=== PATIENT | female | born 1955 | race Caucasian/White ===

== ENCOUNTER → 2016-11-26 | Outpatient (REF) ==
[~2016-11-26] MED LIST: COUM2.5T11 PO; EFFE37.527 PO; GLYX1TAB3 PO; INSUDET SC; INSUHUMDS SC; LISI10TA4 PO; MILKSUS PO; PEG1POW PO; PERC5TAB6 PO; SENN1TAB2 PO; VITA-130 PO
[2016-11-26 10:37] LABS: MEAN CORPUSCULAR HEMOGLOBIN 25.9 pg (27.0-33.0); MEAN CORPUSCULAR HGB CONC 29.9 g/dl (32.0-36.5); MEAN CORPUSCULAR VOLUME 86.5 fl (80.0-96.0); RED CELL DISTRIBUTION WIDTH 16.8 % (11.5-14.5); WHITE BLOOD COUNT 8.4 K/mm3 (4.0-10.0)
[2016-11-26 10:40] LABS: INR 2.58
[2016-11-26 11:15] LABS: CALCIUM LEVEL 8.5 MG/DL (8.8-10.2); CREATININE FOR GFR 1.23 MG/DL (0.55-1.02); GLOMERULAR FILTRATION RATE 47.4 (>45)
--- NOTE | 2016-11-26 23:00 | IPNSKH ---
DATE: 11/26/2016 Resident of [facility] on the second floor in room 425, bed 2. Visited on today's date of 11/26/2016. The visit today primarily was just to discuss pain control as I have been contacted that she is not trying one Percocet, but is taking two Percocet each time and is not trying Tylenol in between. She is an unfortunate 61-year-old that had a mechanical fall and had a comminuted intertrochanteric fracture of the right hip, nondisplaced, right femoral fracture, proximal end, underwent an open reduction internal fixation of the right hip on November 17. She also has a fracture of the right humerus. On examination, she is found sleeping in bed at 04:45 in the afternoon. When she awakens, she denies any pain currently. However, the pain can be 9 to 10 when she is moving. She has taken Percocet two every 8 hours. She was unaware that Percocet is addicting and states she will not take that. However, I recommend that she taper back instead of just discontinuing suddenly. I have also recommended that perhaps she needs to take the Percocet before her physical therapy so she can progress in physical therapy. She is alert and oriented. Her speech is clear. Her EOMs are grossly intact. Sclerae is anicteric. CHART REVIEW: Her blood sugars have been 122-300. Of note, on admission to [facility] her glucose was 933 on November 16 and her A1c was 14.3. She also had an echocardiogram on admission to [facility], which showed mild aortic stenosis, borderline left ventricular hypertrophy (LVH), with grade 2 diastolic dysfunction and ejection fraction of 65-70%. ASSESSMENT/PLAN: 1. Pain control for pain in her right upper arm and right hip. Discussed treatment options and tapering of the Percocet as well as utilizing some of the plain Tylenol as needed (p.r.n.), which she states she is agreeable to. 2. Diabetes with hyperglycemia and neuropathy. She continues on Levemir 16 units twice daily as well as insulin coverage premeal and bedtime. 3. Chronic kidney disease, stage III. Will continue to monitor her medical panels.
== END ==
LOC: SKLAB4 10:22
PROVIDERS: ATTEND Internal Medicine
DX: S72.091A Other fracture of head and neck of right femur, initial encounter for closed fracture (principal); S72.001A Fracture of unspecified part of neck of right femur, initial encounter for closed fracture; S42.301A Unspecified fracture of shaft of humerus, right arm, initial encounter for closed fracture; X58.XXXA Exposure to other specified factors, initial encounter; Y92.9 Unspecified place or not applicable; Y93.9 Activity, unspecified; Y99.9 Unspecified external cause status; I10 Essential (primary) hypertension

== ENCOUNTER → 2016-11-29 | Outpatient (REF) ==
[2016-11-29 09:08] LABS: INR 2.1
== END ==
LOC: SKLAB4 12:19
PROVIDERS: ATTEND Internal Medicine
DX: Z79.01 Long term (current) use of anticoagulants (principal)

== ENCOUNTER → 2016-12-03 | Outpatient (REF) | payer BC, OTHER ==
[2016-12-03 09:06] LABS: INR 1.81
== END ==
LOC: SKLAB4 09:55
PROVIDERS: ATTEND Internal Medicine
DX: S72.001A Fracture of unspecified part of neck of right femur, initial encounter for closed fracture (principal); X58.XXXA Exposure to other specified factors, initial encounter; Y92.9 Unspecified place or not applicable; Y93.9 Activity, unspecified; Y99.9 Unspecified external cause status

== ENCOUNTER → 2016-12-06 | Outpatient (REF) ==
[2016-12-06 08:40] LABS: INR 1.57
== END ==
LOC: SKLAB4 09:25
PROVIDERS: ATTEND Internal Medicine
DX: Z79.01 Long term (current) use of anticoagulants (principal)

== ENCOUNTER → 2016-12-10 | Outpatient (REF) ==
[2016-12-10 09:33] LABS: INR 1.41
== END ==
LOC: SKLAB4 09:27
PROVIDERS: ATTEND Internal Medicine
DX: Z79.01 Long term (current) use of anticoagulants (principal)

== ENCOUNTER → 2016-12-13 | Outpatient (REF) ==
[2016-12-13 10:24] LABS: INR 1.95
== END ==
LOC: SKLAB4 10:46
PROVIDERS: ATTEND Internal Medicine
DX: Z51.81 Encounter for therapeutic drug level monitoring (principal); Z79.01 Long term (current) use of anticoagulants

== ENCOUNTER → 2016-12-17 | Outpatient (REF) ==
[2016-12-17 09:52] LABS: INR 2.32
== END ==
LOC: SKLAB4 10:58
PROVIDERS: ATTEND Internal Medicine
DX: Z51.81 Encounter for therapeutic drug level monitoring (principal); Z79.01 Long term (current) use of anticoagulants

== ENCOUNTER → 2016-12-20 | Outpatient (REF) | payer BC, OTHER | LOC: SKLAB4 21:09 | PROVIDERS: ATTEND Internal Medicine | DX: Z86.14 Personal history of Methicillin resistant Staphylococcus aureus infection (principal) ==

== ENCOUNTER → 2016-12-20 | Outpatient (REF) ==
[2016-12-20 09:22] LABS: INR 2.21
== END ==
LOC: SKLAB4 10:51
PROVIDERS: ATTEND Internal Medicine
DX: Z51.81 Encounter for therapeutic drug level monitoring (principal); Z79.01 Long term (current) use of anticoagulants

== ENCOUNTER → 2016-12-21 | Outpatient (REF) | payer BC, OTHER | LOC: SKLAB4 17:24 | PROVIDERS: ATTEND Internal Medicine | DX: Z86.14 Personal history of Methicillin resistant Staphylococcus aureus infection (principal) ==

== ENCOUNTER → 2016-12-24 | Outpatient (REF) ==
[2016-12-24 08:29] LABS: INR 2.02
== END ==
LOC: SKLAB4 11:30
PROVIDERS: ATTEND Internal Medicine
DX: Z79.01 Long term (current) use of anticoagulants (principal)

== ENCOUNTER → 2016-12-27 | Outpatient (REF) ==
[2016-12-28 07:53] LABS: INR 1.97
== END ==
LOC: SKLAB4 10:57
PROVIDERS: ATTEND Internal Medicine
DX: Z51.81 Encounter for therapeutic drug level monitoring (principal); Z79.01 Long term (current) use of anticoagulants

== ENCOUNTER → 2016-12-28 | Outpatient (REF) | payer BC, OTHER | LOC: SKLAB4 01:55 | PROVIDERS: ATTEND Internal Medicine | DX: Z86.14 Personal history of Methicillin resistant Staphylococcus aureus infection (principal) ==

== ENCOUNTER → 2016-12-31 | Outpatient (REF) ==
[2016-12-31 08:19] LABS: INR 1.42
== END ==
LOC: SKLAB4 11:04
PROVIDERS: ATTEND Internal Medicine
DX: Z51.81 Encounter for therapeutic drug level monitoring (principal); Z79.01 Long term (current) use of anticoagulants

== ENCOUNTER → 2017-01-03 | Outpatient (REF) ==
[2017-01-03 09:42] LABS: INR 1.87
== END ==
LOC: SKLAB4 09:52
PROVIDERS: ATTEND Internal Medicine
DX: Z51.81 Encounter for therapeutic drug level monitoring (principal); Z79.01 Long term (current) use of anticoagulants

== ENCOUNTER → 2017-01-04 | Outpatient (CLI) | payer BC, OTHER ==
--- NOTE | 2017-01-04 11:44 | REP ---
DUPLEX EXTREMITY VENOUS ULTRASOUND: Right lower extremity. HISTORY: 6 weeks post right hip replacement. Question DVT. Edema. FINDINGS: The deep veins are anechoic and fully compressible from the groin to the popliteal fossa in the right lower extremity. Color flow imaging is homogeneous. Spectral Doppler interrogation demonstrates intact respiratory variation in flow and normal manual augmentation of flow. There is no evidence of deep vein thrombosis. There is a 4.8 x 3.0 x 1.0 cm Campoverde's cyst in the right posterior popliteal soft tissues. IMPRESSION: Negative right lower extremity duplex venous ultrasound. No evidence of deep vein thrombosis. 4.8 cm Campoverde's cyst. Signed by Victoriano Herrera MD 01/04/2017 02:06 P
== END ==
LOC: M RAD 10:46
PROVIDERS: ATTEND Nurse Practitioner Adult Health
DX: M71.21 Synovial cyst of popliteal space [Baker], right knee (principal)

== ENCOUNTER → 2017-01-08 | Outpatient (REF) ==
[2017-01-08 07:54] LABS: INR 1.76
== END ==
LOC: SKLAB4 09:50
PROVIDERS: ATTEND Internal Medicine
DX: Z51.81 Encounter for therapeutic drug level monitoring (principal); Z79.01 Long term (current) use of anticoagulants

== ENCOUNTER → 2017-01-09 | Outpatient (CLI) | payer BC, OTHER ==
--- NOTE | 2017-01-09 22:05 | REP ---
Clinical: Lower extremity edema . Technique: Munoz scale and color Doppler evaluation using linear high frequency transducer. Findings: Ultrasound examination of the right lower extremity deep venous structures from the common femoral vein to the popliteal vein demonstrates normal compressibility flow and wave patterns in response to respiration and augmentation. There is no evidence for deep venous thrombosis. Impression: No evidence for deep venous thrombosis. Signed by Michael Coburn MD 01/09/2017 09:56 P
== END ==
LOC: M RAD 08:10
PROVIDERS: ATTEND Nurse Practitioner Adult Health
DX: R60.0 Localized edema (principal)

== ENCOUNTER → 2017-01-10 | Outpatient (REF) ==
[2017-01-10 08:46] LABS: INR 1.27
== END ==
LOC: SKLAB4 11:45
PROVIDERS: ATTEND Internal Medicine
DX: Z51.81 Encounter for therapeutic drug level monitoring (principal); Z79.01 Long term (current) use of anticoagulants

== ENCOUNTER 2017-02-06 11:06 | Outpatient (RCR) | payer BC, OTHER ==
[~2017-02-06 11:06] MED LIST changes: -COUM2.5T11 PO; +COUM2.5T17 PO; +PERC5TAB12 PO; -PERC5TAB6 PO; -VITA-130 PO; +VITA500T PO
== END 2017-02-08 | disposition home or self-care (01) ==
LOC: M PT 11:06
PROVIDERS: ATTEND Orthopaedic Surgery
DX: Z51.89 Encounter for other specified aftercare (principal); S72.141A Displaced intertrochanteric fracture of right femur, initial encounter for closed fracture; S42.201A Unspecified fracture of upper end of right humerus, initial encounter for closed fracture; X58.XXXA Exposure to other specified factors, initial encounter; Y92.9 Unspecified place or not applicable; Y93.9 Activity, unspecified; Y99.9 Unspecified external cause status

== ENCOUNTER → 2017-03-11 | Outpatient (RCR) | payer BC, OTHER | LOC: M OT 02-28 12:25 → M PT 03-01 11:15 → M OT 03-06 07:30 → M PT 08:29 | PROVIDERS: ATTEND Orthopaedic Surgery | DX: Z51.89 Encounter for other specified aftercare (principal); S42.201D Unspecified fracture of upper end of right humerus, subsequent encounter for fracture with routine healing; X58.XXXD Exposure to other specified factors, subsequent encounter; Y92.9 Unspecified place or not applicable; Y93.9 Activity, unspecified; Y99.9 Unspecified external cause status ==

== ENCOUNTER 2017-03-27 08:30 | Outpatient (RCR) | payer BC, OTHER | END 2017-04-11 | disposition home or self-care (01) | LOC: M PT 08:30 | PROVIDERS: ATTEND Orthopaedic Surgery | DX: Z51.89 Encounter for other specified aftercare (principal); S72.141D Displaced intertrochanteric fracture of right femur, subsequent encounter for closed fracture with routine healing; X58.XXXD Exposure to other specified factors, subsequent encounter; Y92.9 Unspecified place or not applicable; Y93.9 Activity, unspecified; Y99.9 Unspecified external cause status | CPT/HCPCS: 97110; 97140; G0283 ==

== ENCOUNTER → 2017-04-09 | Outpatient (CLI) | payer BC ==
--- NOTE | 2017-04-10 10:12 | DEXA ---
AP SPINE L1 - L4 1.472 2.2 3.5 LT FEMUR TOTAL 0.866 -1.1 -0.1 RT FEMUR TOTAL Right hip partial replacement. TOTAL BODY TOTAL OTHER DUAL FEMUR FRAX* ASSESSMENT Risk factors: Not performed. 10 year probability of fracture Major osteoporotic fracture % Hip fracture % COMMENTS: Normal bone densitometry of the spine. There is low bone density of the left hip. The density of the spine has decreased 14.9% since 01/22/2008. The density of the left hip has decreased 40.9% since 01/22/2008. Partial hip replacement. FOLLOW-UP: Recommendation for the next bone density exam: 2 years. DEBBIED
== END ==
LOC: M WHC 08:27
PROVIDERS: ATTEND Internal Medicine Endocrinology, Diabetes & Metabolism
DX: S72.141D Displaced intertrochanteric fracture of right femur, subsequent encounter for closed fracture with routine healing (principal); X58.XXXD Exposure to other specified factors, subsequent encounter; Y92.9 Unspecified place or not applicable; Y93.9 Activity, unspecified; Y99.9 Unspecified external cause status; Z96.641 Presence of right artificial hip joint; M85.88 Other specified disorders of bone density and structure, other site

== ENCOUNTER → 2017-04-11 | Outpatient (REF) | payer BC, OTHER ==
[2017-04-11 12:49] LABS: CREATININE FOR GFR 1.27 MG/DL (0.55-1.02); GLOMERULAR FILTRATION RATE 45.5 (>45); POTASSIUM SERUM 4.6 MEQ/L (3.5-5.1)
== END ==
LOC: M LABDRAW1 08:22
PROVIDERS: ATTEND Internal Medicine Endocrinology, Diabetes & Metabolism
DX: E11.65 Type 2 diabetes mellitus with hyperglycemia (principal)

== ENCOUNTER → 2017-04-11 | Outpatient (REF) | payer BC, OTHER | LOC: M LABDRAW1 08:22 | PROVIDERS: ATTEND Family Medicine | DX: E11.9 Type 2 diabetes mellitus without complications (principal) ==

== ENCOUNTER → 2017-04-24 | Outpatient (REF) | payer MEDICARE | LOC: M SFHCADAM 17:25 | PROVIDERS: ATTEND Family Medicine | DX: N18.9 Chronic kidney disease, unspecified (principal) ==

== ENCOUNTER → 2017-05-07 | Outpatient (CLI) | payer BC, OTHER ==
--- NOTE | 2017-05-08 06:52 | REP ---
Clinical: Chronic medical renal disease. Technique: Real time chapin scale ultrasound examination using curved array transducer. Findings: The bilateral kidneys are normal in contour, size, echogenicity and reniform shape with linear parenchymal echogenicity suggesting renovascular disease. No evidence for hydronephrosis, cystic or renal mass lesion. No perinephric fluid collections are identified. Bladder is collapsed. Right kidney measures 9.1 x 4.9 x 5.7 cm. Left kidney measures 9.9 x 4.8 x 5.8 cm. Impression: 1. Findings suggesting renovascular calcifications. 2. No hydronephrosis or significant renal abnormality by ultrasound. Signed by Michael Coburn MD 05/08/2017 06:44 A
== END ==
LOC: M RAD 16:32
PROVIDERS: ATTEND Family Medicine
DX: N18.9 Chronic kidney disease, unspecified (principal)

== ENCOUNTER → 2017-05-30 | Outpatient (REF) | payer BC, MEDICARE, OTHER | LOC: M SFHCADAM 09:15 | PROVIDERS: ATTEND Family Medicine | DX: N18.3 Chronic kidney disease, stage 3 (moderate) (principal) ==

== ENCOUNTER → 2017-11-11 | Outpatient (REF) | payer OTHER, MEDICARE, BC ==
[2017-11-11 11:30] LABS: BASO % 0.4 % (0.0-1.0); EOS # 0.1 10^3/uL (0.0-0.50); EOS % 1.6 % (0.0-3.0); HEMATOCRIT 33.6 % (36.0-47.0); HEMOGLOBIN 10.3 g/dl (12.0-15.5); IMMATURE GRANULOCYTE % 0.1 % (0-3.0); LYMPH # 1.7 10^3/uL (1.5-4.5); LYMPH % 21.3 % (24.0-44.0); MEAN CORPUSCULAR HEMOGLOBIN 26.6 pg (27.0-33.0); MEAN CORPUSCULAR HGB CONC 30.7 g/dl (32.0-36.5); MEAN CORPUSCULAR VOLUME 86.8 fl (80.0-96.0); MONO # 0.5 10^3/uL (0.0-0.8); MONO % 6.5 % (0.0-5.0); NEUTROPHILS # 5.6 10^3/uL (1.8-7.7); NEUTROPHILS % 70.1 % (36.0-66.0); PLATELET COUNT, AUTOMATED 380 10^3/uL (150-450); RED BLOOD COUNT 3.87 10^6/uL (4.00-5.40); RED CELL DISTRIBUTION WIDTH 13.8 % (11.5-14.5)
[2017-11-11 12:07] LABS: ANION GAP 9 MEQ/L (8-16); BLOOD UREA NITROGEN 24 MG/DL (7-18); C REACTIVE PROTEIN QUANTITATIV < 0.30 MG/DL (0.00-0.30); CALCIUM LEVEL 8.6 MG/DL (8.8-10.2); CARBON DIOXIDE LEVEL 21 MEQ/L (21-32); CHLORIDE LEVEL 114 MEQ/L (98-107); CREATININE FOR GFR 1.29 MG/DL (0.55-1.30); GLOMERULAR FILTRATION RATE 44.7 (>45); GLUCOSE, FASTING 57 MG/DL (70-100); POTASSIUM SERUM 4.7 MEQ/L (3.5-5.1); SODIUM LEVEL 144 MEQ/L (136-145)
== END ==
LOC: M LABDRAW1 09:51
DX: M25.551 Pain in right hip (principal)
CPT/HCPCS: 80048

== ENCOUNTER → 2017-12-20 | Outpatient (CLI) | payer BC, OTHER ==
[2017-12-20 12:23] LABS: HEMOGLOBIN 10.2 g/dl (12.0-15.5); MEAN CORPUSCULAR HEMOGLOBIN 26.7 pg (27.0-33.0); MEAN CORPUSCULAR HGB CONC 30.9 g/dl (32.0-36.5); MEAN CORPUSCULAR VOLUME 86.4 fl (80.0-96.0); PLATELET COUNT, AUTOMATED 331 10^3/uL (150-450); RED BLOOD COUNT 3.82 10^6/uL (4.00-5.40); RED CELL DISTRIBUTION WIDTH 14.5 % (11.5-14.5); WHITE BLOOD COUNT 6.3 10^3/uL (4.0-10.0)
[2017-12-20 12:33] LABS: INR 0.98; PROTHROMBIN TIME 13.1 SECONDS (12.4-14.5)
[2017-12-20 13:09] LABS: ALBUMIN 3.5 GM/DL (3.2-5.2); ALBUMIN/GLOBULIN RATIO 0.95 (1.00-1.93); ALKALINE PHOSPHATASE 143 U/L (45-117); ALT/SGPT 46 U/L (12-78); ANION GAP 6 MEQ/L (8-16); AST/SGOT 34 U/L (7-37); BILIRUBIN,TOTAL 0.3 MG/DL (0.2-1.0); BLOOD UREA NITROGEN 25 MG/DL (7-18); CALCIUM LEVEL 8.6 MG/DL (8.8-10.2); CARBON DIOXIDE LEVEL 25 MEQ/L (21-32); CHLORIDE LEVEL 109 MEQ/L (98-107); CREATININE FOR GFR 1.16 MG/DL (0.55-1.30); GLOMERULAR FILTRATION RATE 50.6 (>45); GLUCOSE, FASTING 125 MG/DL (70-100); POTASSIUM SERUM 4.7 MEQ/L (3.5-5.1); SODIUM LEVEL 140 MEQ/L (136-145); TOTAL PROTEIN 7.2 GM/DL (6.4-8.2)
== END ==
LOC: M LAB 11:36
DX: E78.00 Pure hypercholesterolemia, unspecified (principal); I10 Essential (primary) hypertension; E11.9 Type 2 diabetes mellitus without complications
CPT/HCPCS: 71046

== ENCOUNTER → 2017-12-23 | Outpatient (REF) | payer BC, OTHER | LOC: M SFHCADAM 18:37 | DX: Z01.818 Encounter for other preprocedural examination (principal) | CPT/HCPCS: 87081 ==

== ENCOUNTER → 2018-03-04 | Outpatient (REF) | payer OTHER ==
[2018-03-04 16:21] LABS: ESTIMATED AVERAGE GLUCOSE 137 MG/DL (60-110); HEMOGLOBIN A1c 6.4 %
== END ==
LOC: M LABDRAW1 15:51
DX: E11.65 Type 2 diabetes mellitus with hyperglycemia (principal)

== ENCOUNTER → 2018-06-04 | Outpatient (REF) | payer OTHER ==
[2018-06-04 12:46] LABS: ANION GAP 6 MEQ/L (8-16); BLOOD UREA NITROGEN 22 MG/DL (7-18); CALCIUM LEVEL 8.8 MG/DL (8.8-10.2); CARBON DIOXIDE LEVEL 24 MEQ/L (21-32); CHLORIDE LEVEL 111 MEQ/L (98-107); CREATININE FOR GFR 1.27 MG/DL (0.55-1.30); GLOMERULAR FILTRATION RATE 45.4 (>45); GLUCOSE, FASTING 117 MG/DL (70-100); POTASSIUM SERUM 5.2 MEQ/L (3.5-5.1); SODIUM LEVEL 141 MEQ/L (136-145)
[2018-06-04 13:12] LABS: ESTIMATED AVERAGE GLUCOSE 151 MG/DL (60-110); HEMOGLOBIN A1c 6.9 %
== END ==
LOC: M LABDRAW1 11:48
DX: E11.65 Type 2 diabetes mellitus with hyperglycemia (principal)

== ENCOUNTER → 2018-06-04 | Outpatient (REF) | payer OTHER ==
[2018-06-04 12:57] LABS: MALB URINE SIEMENS 50.8 MG/L
[2018-06-04 12:58] LABS: MAU/CREAT RATIO 33.2 MCG/MG (0.0-30.0)
== END ==
LOC: M LABDRAW1 11:47
DX: E11.22 Type 2 diabetes mellitus with diabetic chronic kidney disease (principal)

== ENCOUNTER → 2018-09-26 | Outpatient (REF) | payer OTHER ==
[~2018-09-26] MED LIST changes: +BYDU1INJ SC; +EFFE37.5 PO; -EFFE37.527 PO; +MILK120011 PO; -MILKSUS PO; +TRES1INJ2 SC; +TYLE1TAB5 PO; +TYLE500T78 PO
[2018-09-26 13:19] LABS: HEMOGLOBIN A1c 7.7 %
== END ==
LOC: M LABDRAW1 10:02
PROVIDERS: ATTEND Internal Medicine Endocrinology, Diabetes & Metabolism
DX: E11.65 Type 2 diabetes mellitus with hyperglycemia (principal)

== ENCOUNTER 2018-11-12 07:44 | Day surgery (SDC) | payer BC, OTHER ==
[~2018-11-12] VITALS: Ht 167.6 cm; Wt 97.1 kg
[2018-11-12] MEDS: NS 1,000 ML IV ONE (06:00)
[~2018-11-12 07:44] MED LIST changes: +LIDOCAINE 2% INJ 100 MG/5 ML SDV (FOR ANES.) As Ordered ONE; +PROPOFOL 200 MG/20 ML VIAL As Ordered ONE; -SENN1TAB2 PO; +SENN1TAB40 PO
--- NOTE | 2018-11-12 09:13 | ROOR ---
Patient Name: Mimi Bolaños Procedure Date: 11/12/2018 8:48 AM Date of : 1955 Age: 63 Room: [facility] Gender: Female Note Status: Finalized Procedure: Total Colonoscopy to Cecum Indications: High risk colon cancer surveillance: Personal history of colonic polyps, Last colonoscopy: 2012 Providers: Jer García MD Referring MD: Masha BENTLEY DO Requesting Provider: Medicines: Monitored Anesthesia Care Complications: No immediate complications. Procedure: Pre-Anesthesia Assessment: - The heart rate, respiratory rate, oxygen saturations, blood pressure, adequacy of pulmonary ventilation, and response to care were monitored throughout the procedure. The Colonoscope was introduced through the anus and advanced to the cecum, identified by appendiceal orifice and ileocecal valve. The colonoscopy was performed without difficulty. The patient tolerated the procedure well. The quality of the bowel preparation was excellent. Findings: The perianal and digital rectal examinations were normal. Non-bleeding internal hemorrhoids were found during retroflexion. The hemorrhoids were small and Grade I (internal hemorrhoids that do not prolapse). Scattered small-mouthed diverticula were found in the recto-sigmoid colon, sigmoid colon and descending colon. The exam was otherwise without abnormality on direct and retroflexion views. Impression: - Non-bleeding internal hemorrhoids. - Diverticulosis in the recto-sigmoid colon, in the sigmoid colon and in the descending colon. - The examination was otherwise normal on direct and retroflexion views. - No specimens collected. - The exam was otherwise normal to the cecum. Recommendation: - Patient has a contact number available for emergencies. The signs and symptoms of potential delayed complications were discussed with the patient. Return to normal activities tomorrow. Written discharge instructions were provided to the patient. - High fiber diet. - Discharge patient to home. - Continue present medications. - Repeat colonoscopy in 5 years for surveillance. - Return to referring physician. - The findings and recommendations were discussed with the patient's family. Jer García MD Jer García MD 11/12/2018 9:12:31 AM Electronically signed by Jer García MD Number of Addenda: 0 Note Initiated On: 11/12/2018 8:48 AM Estimated Blood Loss: Estimated blood loss: none.
[2018-11-12 09:30] VITALS: BP 163/75
== END 2018-11-12 09:39 | disposition home or self-care (01) ==
LOC: M OPP 07:44
PROVIDERS: ATTEND Internal Medicine Gastroenterology
DX: K64.0 First degree hemorrhoids (principal); K57.30 Diverticulosis of large intestine without perforation or abscess without bleeding; Z86.010 Personal history of colon polyps

== ENCOUNTER → 2018-12-09 | Outpatient (CLI) | payer BC ==
[~2018-12-09] MED LIST changes: -LIDOCAINE 2% INJ 100 MG/5 ML SDV (FOR ANES.) As Ordered ONE; -PROPOFOL 200 MG/20 ML VIAL As Ordered ONE
--- NOTE | 2018-12-09 13:07 | REPMRS ---
Patient History The patient states she had a clinical breast exam in 10/2018. Family history of breast cancer at age 50 or over in maternal grandmother, prostate cancer at age 55 in brother, prostate cancer in brother. Benign excisional biopsy of the left breast. Took estrogen for 2 years 1 month. 3D TOMOSYNTHESIS WAS PERFORMED. Digital Woman Screen Mammo: December 09, 2018 - Exam #: [id number] Bilateral CC and MLO view(s) were taken. Technologist: Ebonie Gonzalez, Technologist Prior study comparison: July 04, 2016, digital woman screen mammo performed at [facility]. June 24, 2015, digital woman screen mammo performed at [facility]. FINDINGS: There are scattered fibroglandular densities. There has been no change in the appearance of the mammogram from the prior studies. There is a mild amount of residual fibroglandular tissue which is fairly symmetric. There is no interval development of dominant mass, architectural distortion, or clustered microcalcification suggestive of malignancy. Assessment: BI-RADS/ACR category 1 mammogram. Negative Mammogram. Recommendation Routine screening mammogram in 1 year (for women over age 40). This mammogram was interpreted with the aid of an FDA-approved computer-aided dectection system. Electronically Signed By: Kashmir Munoz MD 12/09/18 [id number]
== END ==
LOC: M WHC 10:08
PROVIDERS: ATTEND Family Medicine
DX: Z12.31 Encounter for screening mammogram for malignant neoplasm of breast (principal); Z92.23 Personal history of estrogen therapy

== ENCOUNTER → 2019-02-04 | Outpatient (REF) | payer OTHER ==
[2019-02-04 12:54] LABS: CALCIUM LEVEL 8.8 MG/DL (8.8-10.2); CHOLESTEROL RISK RATIO 3.263 (<5); CREATININE FOR GFR 1.06 MG/DL (0.55-1.30); GLOMERULAR FILTRATION RATE 55.7 (>45)
[2019-02-04 13:16] LABS: CREATININE, URINE 54.2 MG/DL; MALB URINE SIEMENS 26.3 MG/L; MAU/CREAT RATIO 48.5 MCG/MG (0.0-30.0)
[2019-02-04 13:59] LABS: HEMOGLOBIN A1c 8.2 %
== END ==
LOC: M LABDRAW1 12:10
PROVIDERS: ATTEND Nurse Practitioner Family
DX: E11.65 Type 2 diabetes mellitus with hyperglycemia (principal); E78.00 Pure hypercholesterolemia, unspecified

== ENCOUNTER → 2019-06-11 | Outpatient (REF) | payer OTHER ==
[~2019-06-11] MED LIST changes: +SENN-53 PO; -SENN1TAB40 PO
[2019-06-11 12:20] LABS: CALCIUM LEVEL 8.5 MG/DL (8.8-10.2); CREATININE FOR GFR 1.23 MG/DL (0.55-1.30); GLOMERULAR FILTRATION RATE 46.9 (>45); POTASSIUM SERUM 4.9 MEQ/L (3.5-5.1)
== END ==
LOC: M LABDRAW1 11:39
PROVIDERS: ATTEND Internal Medicine Endocrinology, Diabetes & Metabolism
DX: E11.65 Type 2 diabetes mellitus with hyperglycemia (principal)

== ENCOUNTER → 2020-11-18 | Outpatient (CLI) | payer BC, OTHER ==
[~2020-11-18] MED LIST changes: +LISI10TA22 PO; -LISI10TA4 PO; -PEG1POW PO; +POLY17PO18 PO; +VITA-243 PO; -VITA500T PO
[2020-11-18 10:30] LABS: ALBUMIN 3.5 GM/DL (3.2-5.2); BILIRUBIN,TOTAL 0.4 MG/DL (0.2-1.0); CALCIUM LEVEL 8.7 MG/DL (8.8-10.2); CHOLESTEROL RISK RATIO 3.368 (<5); CREATININE FOR GFR 1.08 MG/DL (0.55-1.30); GLOMERULAR FILTRATION RATE 54.4 (>45); TOTAL PROTEIN 7.4 GM/DL (6.4-8.2)
[2020-11-18 10:36] LABS: CREATININE, URINE 18.8 MG/DL; MALB URINE SIEMENS 32.8 MG/L; MAU/CREAT RATIO 174.4 MCG/MG (0.0-30.0)
== END ==
LOC: M LAB 09:31
PROVIDERS: ATTEND Nurse Practitioner Family
DX: E11.65 Type 2 diabetes mellitus with hyperglycemia (principal); E78.00 Pure hypercholesterolemia, unspecified

== ENCOUNTER → 2021-01-23 | Outpatient (REF) | payer MEDICARE, OTHER ==
[~2021-01-23] MED LIST changes: +AMOX500C PO; +FARX1TAB3 PO
[2021-01-23 13:42] LABS: BASO % 0.3 % (0.0-1.0); EOS # 0.1 10^3/uL (0.0-0.5); EOS % 0.6 % (0.0-3.0); HEMATOCRIT 40.6 % (36.0-47.0); LYMPH # 1.4 10^3/uL (1.5-5.0); LYMPH % 13.6 % (24.0-44.0); MEAN CORPUSCULAR HEMOGLOBIN 26.1 pg (27.0-33.0); MEAN CORPUSCULAR HGB CONC 29.6 g/dl (32.0-36.5); MEAN CORPUSCULAR VOLUME 88.3 fl (80.0-96.0); MONO # 0.6 10^3/uL (0.0-0.8); MONO % 6.2 % (2.0-8.0); NEUTROPHILS # 7.9 10^3/uL (1.5-8.5); PLATELET COUNT, AUTOMATED 308 10^3/uL (150-450); WHITE BLOOD COUNT 10.1 10^3/uL (4.0-10.0)
[2021-01-23 14:54] LABS: CREATININE FOR GFR 1.28 MG/DL (0.55-1.30); GLOMERULAR FILTRATION RATE 44.6 (>45); POTASSIUM SERUM 4.9 MEQ/L (3.5-5.1)
[2021-01-23 14:55] LABS: ALBUMIN 3.4 GM/DL (3.2-5.2); BILIRUBIN,TOTAL 0.6 MG/DL (0.2-1.0); FREE T4 1.35 NG/DL (0.76-1.46); THYROID STIMULATING HORMONE 1.23 uIU/ML (0.358-3.740); TOTAL PROTEIN 7.2 GM/DL (6.4-8.2)
== END ==
LOC: M SFHCADAM 11:40
PROVIDERS: ATTEND Family Medicine
DX: R19.7 Diarrhea, unspecified (principal)

== ENCOUNTER → 2021-01-25 | Outpatient (REF) | payer MEDICARE, OTHER | LOC: M LAB REF 12:51 | PROVIDERS: ATTEND Family Medicine | DX: R19.7 Diarrhea, unspecified (principal) ==

== ENCOUNTER 2021-02-06 10:48 | Emergency (ER) | payer MEDICARE, BC, OTHER ==
[~2021-02-06] VITALS: Ht 167.6 cm; Wt 86.8 kg
[~2021-02-06 10:48] MED LIST changes: -AMOX500C PO; -FARX1TAB3 PO
[2021-02-06 11:51] LABS: BASO % 0.3 % (0.0-1.0); EOS # 0.1 10^3/uL (0.0-0.5); EOS % 0.8 % (0.0-3.0); HEMOGLOBIN 12.1 g/dl (12.0-15.5); LYMPH # 1.1 10^3/uL (1.5-5.0); LYMPH % 11.6 % (24.0-44.0); MEAN CORPUSCULAR HEMOGLOBIN 26.9 pg (27.0-33.0); MEAN CORPUSCULAR HGB CONC 31.8 g/dl (32.0-36.5); MEAN CORPUSCULAR VOLUME 84.6 fl (80.0-96.0); MONO # 0.6 10^3/uL (0.0-0.8); MONO % 6.5 % (2.0-8.0); NEUTROPHILS # 7.6 10^3/uL (1.5-8.5); NEUTROPHILS % 80.5 % (36.0-66.0); PLATELET COUNT, AUTOMATED 334 10^3/uL (150-450); RED BLOOD COUNT 4.49 10^6/uL (4.00-5.40); WHITE BLOOD COUNT 9.5 10^3/uL (4.0-10.0)
[2021-02-06 12:22] LABS: ALBUMIN 3.3 GM/DL (3.2-5.2); BILIRUBIN,DIRECT 10.1 MG/DL (0.0-0.2); BILIRUBIN,TOTAL 12.3 MG/DL (0.2-1.0); TOTAL PROTEIN 7.3 GM/DL (6.4-8.2)
[2021-02-06] MEDS ORDERED: ISOVUE-370 76% 100ML VIAL As Ordered ONE (12:25)
[2021-02-06] MEDS ORDERED: NS 1,000 ML IV ONE (12:45)
--- NOTE | 2021-02-06 13:11 | REP ---
INDICATION: abdominal pain. COMPARISON: None TECHNIQUE: Axial contrast-enhanced images from the lung bases to the pubic symphysis using 100 cc Isovue 370 intravenous contrast material. Coronal and sagittal reformations obtained along with delayed images of the abdomen. This CT examination was performed using the following dose reduction techniques: Automated exposure control, adjustment of mA and/or kv according to the patient's size, and the use of iterative reconstruction technique. FINDINGS: Liver demonstrates innumerable enhancing lesions with surrounding circumferential edema (bullseye type lesions) most consistent with metastatic disease of uncertain primary. The gallbladder is distended and there is evidence for intrahepatic and extrahepatic biliary ductal dilatation. Patient appears to be status post gastric bypass surgery and there appears to be irregular likely postsurgical tethering and adhesions between structures in the right upper quadrant including stomach, duodenum and pancreas which are poorly discernible from one another. The spleen and bilateral adrenal glands appear normal. The kidneys demonstrate symmetric age-related cortical atrophy. The there is no evidence for bowel obstruction. Small and large bowel is grossly unremarkable. Scattered colonic diverticula noted without acute diverticulitis. Normal terminal ileum and appendix are identified in the right lower quadrant.. Pelvis demonstrates relatively normal appearance to the bladder and uterus/adnexa although evaluation is somewhat limited due to metallic streak artifact from right hip prosthesis despite using metallic artifact reduction techniques. No ascites. No free air. No obvious adenopathy. Abdominal aorta and vasculature demonstrate atherosclerotic changes. Musculoskeletal structures are intact and without acute osseous abnormality. IMPRESSION: 1. Liver demonstrates innumerable enhancing bull's-eye type lesions consistent with metastatic disease of uncertain primary etiology. 2. Irregular adhesions and tethering in the right upper quadrant involving portions of the gastric bypass, duodenum, and pancreas likely causing element of distal CBD obstruction and associated intrahepatic and extrahepatic biliary ductal dilatation and gallbladder dilatation. 3. Above findings require further investigation. <Electronically signed by Michael Coburn > 02/06/21 [id number]
--- NOTE | 2021-02-06 13:58 | REP ---
INDICATION: RUQ. COMPARISON: Comparison is made with today's CT study of the abdomen and pelvis showing hepatic metastatic disease pattern.. TECHNIQUE: Right upper quadrant sonography. FINDINGS: Scanning through the right upper quadrant the abdomen demonstrates a mildly dilated gallbladder measuring up to 9.4 cm in length. The gallbladder lumen contains mobile echogenic foci consistent with cholelithiasis. Common bile duct is dilated measuring 1.3 cm. In comparison with the CT and ultrasound images, the level of common bile duct obstruction appears to be at the common hepatic/proximal common bile duct segment. No stone is seen in the common bile duct by ultrasound. Pancreas is obscured by abdominal gas sonographically. There is no evidence of ascites. There are multiple anechoic to hypoechoic liver lesions consistent with the lesion seen on CT study. The 2 largest liver lesions measure 1.5 and 2.9 cm in greatest diameter. No right renal abnormality is seen. The right kidney measures 9.4 x 4.2 x 5.5 cm.. IMPRESSION: Somewhat inhibited exam quality due to body habitus. Multiple liver lesions compatible with metastatic disease. Dilated common bile duct in the region of the common hepatic/proximal common bile duct segment. There is cholelithiasis but no October ultrasound evidence of choledocholithiasis is seen. The gallbladder is mildly dilated.. <Electronically signed by Ganesh Herrera > 02/06/21 [id number]
[2021-02-06 14:32] LABS: CK-MB VALUE MASS 2.9 NG/ML (<3.6); CPK CREATINE PHOSPHOKINASE 129 U/L (26-192); MB/CK RELATIVE INDEX 2.25 (< OR =4); TROPONIN I < 0.02 NG/ML (< 0.10)
[2021-02-06 16:08] LABS: NT-PRO BNP 547 PG/ML (<125)
[2021-02-06 16:28] LABS: HEPATITIS B SURFACE ANTIGEN NEGATIVE (NEGATIVE)
[2021-02-06 16:54] LABS: HEPATITIS C VIRUS ABY INDEX < 0.0 INDEX (<0.8)
[2021-02-06 16:55] LABS: HEPATITIS B CORE ANTIBODY IGM NEGATIVE (NEGATIVE)
[2021-02-06 16:57] LABS: HEPATITIS A ANTIBODY IGM NEGATIVE (NEGATIVE)
[2021-02-06 19:31] VITALS: BP 158/72
--- NOTE | 2021-02-06 22:36 | ECGEPIP ---
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
== END 2021-02-06 19:33 | disposition short-term general hospital (02) ==
LOC: M ED 10:48
DX: C78.7 Secondary malignant neoplasm of liver and intrahepatic bile duct (principal); K83.1 Obstruction of bile duct; N39.0 Urinary tract infection, site not specified; E11.9 Type 2 diabetes mellitus without complications; I10 Essential (primary) hypertension; E78.5 Hyperlipidemia, unspecified; Z87.01 Personal history of pneumonia (recurrent); Z98.84 Bariatric surgery status; Z79.4 Long term (current) use of insulin; Z79.899 Other long term (current) drug therapy; Z91.018 Allergy to other foods; Z88.8 Allergy status to other drugs, medicaments and biological substances
CPT/HCPCS: 74177; 76705; 80047; 80076; 81001; 82550; 82553; 83605; 83690; 83880; 84484; 85025; 86705; 86709; 86803; 87088; 87186; 87340; 93005; 96360; 99284; Q9967; U0002

== ENCOUNTER 2021-02-13 22:31 | Emergency (ER) | payer MEDICARE, BC, OTHER ==
[~2021-02-13] VITALS: Ht 167.6 cm; Wt 87.4 kg
[2021-02-13] MEDS ORDERED: AMOX500C PO (22:45)
[2021-02-13] MEDS ORDERED: INSUHUMDS SC (22:45)
[2021-02-13] MEDS ORDERED: FARX1TAB3 PO (22:45)
[2021-02-14 03:24] VITALS: BP 176/74
== END 2021-02-14 03:46 | disposition home or self-care (01) ==
LOC: M ED 22:31
DX: C22.1 Intrahepatic bile duct carcinoma (principal); K83.1 Obstruction of bile duct; E11.9 Type 2 diabetes mellitus without complications; I10 Essential (primary) hypertension; Z79.4 Long term (current) use of insulin; Z79.899 Other long term (current) drug therapy; Z91.018 Allergy to other foods; Z88.8 Allergy status to other drugs, medicaments and biological substances